=== PATIENT | female | born 1995 | race Caucasian/White ===

== ENCOUNTER 2024-05-08 11:33 | Day surgery (SDC) | payer OTHER, SELFPAY ==
[2024-05-08] VITALS (11 sets, daily range): BP systolic 107–129; BP diastolic 62–83; PULSE 62–77; RESP 14–18; TEMP 35.8–36.6; O2SAT 94–100; BMI 28.6
[2024-05-08 12:37] LABS: Ur HCG Qualitative* Negative (Negative)
[2024-05-08] MEDS: LACTATED RINGERS 1000 ML 1,000 ML 100 ML IV (12:55)
[2024-05-08] MEDS: SODIUM CHLORIDE 0.9 % (FLUSH) 10 ML SYRINGE IVF (12:58)
--- NOTE | 2024-05-08 14:15 | P.GSOP_ITS ---
Operative Note Date of procedure: 05/08/24 Pre-op diagnosis: Biliary colic Post-op diagnosis: Same Type of Procedure: Laparoscopic cholecystectomy Indications: The patient is a 28-year-old female who developed postprandial right upper quadrant pain, nausea and vomiting, symptoms concerning for biliary colic. She underwent ultrasound which showed gallstones without evidence of biliary obstruction. I recommended cholecystectomy and she agreed to proceed. Procedure Description: After discussing the risks and benefits of the procedure, the patient signed informed consent.? The operative site was marked and the patient was brought to the operating room and placed on the operating table in supine position.? Care was taken to pad the patient's pressure points.?? The patient was then intubated by anesthesia.?? The operative site was then prepped and draped in the usual sterile fashion.? A time-out was then performed. Entrance to the abdomen was gained via a 5 mm Visiport in the left upper quadrant. The abdomen was insufflated and briefly surveyed for signs of injury. There was none. A 10 mm umbilical port was placed as well as 2 working ports along the right costal margin, all under direct vision. The patient was then placed in reverse Trendelenburg position with the right side up. The gallbladder fundus was grasped and retracted cephalad. A small amount of dissection was needed to free omental adhesions from the gallbladder. The infundibulum was grasped. A combination of hook cautery and blunt dissection was used to carefully dissect out the cystic duct and artery until they could clearly be seen entering the gallbladder without any intervening structures. The gall bladder was dissected off the cystic plate to achieve the critical view. Once this was achieved the cystic duct and artery were each clipped with 2 clips proximally and 1 clip distally and transected with the scissors. The gallbladder was then taken off of the liver bed and removed from the abdomen using an Endo- Catch bag. The gallbladder bed was surveyed for hemostasis which appeared excellent. The abdomen was desufflated and the ports removed. The umbilical port fascia site was closed with 0 Vicryl. The wounds were then closed with 4-0 Monocryl subcuticular suture. Sterile dressings were applied. Instrument sponge and needle counts were correct at the end of the case. The patient was then woken and transferred to the PACU in stable condition. ? The patient was then woken and transported to the recovery area in stable condition. ? The patient tolerated the procedure well. Findings: Gallbladder with small amount of omental adhesions noted. Anesthesia: GETA Surgeon: Kaylyn Alfaro MD Estimated blood loss (mL): 5 Specimen: Gallbladder Condition: stable Disposition: PACU
--- NOTE | 2024-05-08 14:15 | W.PM.H&PU ---
History & Physical Update History & Physical Update H&P Reviewed and patient assessed: No changes noted
[2024-05-08] MEDS: CEFAZOLIN 2 GM INJ IVP (14:18)
[2024-05-08] MEDS: BUPIVACAINE 0.25% 30 ML INJECTION (14:40)
--- NOTE | 2024-05-08 15:07 | W.ANESCHARGE ---
Anesthesia Charges Start Date/Time Anesthesia Start Date: 05/08/24 Anesthesia Start Time: 14:12 Stop Date/Time Anesthesia Stop Date: 05/08/24 Anesthesia Stop Time: 15:19
--- NOTE | 2024-05-08 15:27 | W.ANESCHARGE ---
Anesthesia Charges Start Date/Time Anesthesia Start Date: 05/08/24 Anesthesia Start Time: 14:12 Stop Date/Time Anesthesia Stop Date: 05/08/24 Anesthesia Stop Time: 15:19
[2024-05-08] MEDS: HYDROCODONE-ACETAMIN 5-325 MG 1 TAB PO (16:03)
== END 2024-05-08 16:43 | disposition home or self-care (01) ==
PROVIDERS: Visit Provider Surgery
PROC: 0FT44ZZ Resection of Gallbladder, Percutaneous Endoscopic Approach (ICD-10-PCS; CPT 47562; principal; 2024-05-08 13:15)
DX: K80.10 Calculus of gallbladder with chronic cholecystitis without obstruction (principal); K82.8 Other specified diseases of gallbladder; R10.11 Right upper quadrant pain
CPT/HCPCS: 47562; 00790; 81025; 88304; A9270; J0330; J0665; J0690; J1100; J1885; J2405; J2704; J3010; J7120